=== PATIENT | male | born 1950 | race Caucasian/White ===

== ENCOUNTER 2021-01-01 07:51 | Emergency (ER) | payer OTHER ==
[~2021-01-01] VITALS: Ht 170.2 cm; Wt 86.4 kg
[2021-01-01 08:37] VITALS: TEMP 98.6
[2021-01-01] MEDS ORDERED: AMOXICILLIN 8751 TAB PO (09:27)
[2021-01-01] MEDS ORDERED: PERCOCET 325 MG1 TA2 PO (09:27)
[2021-01-01 11:23] VITALS: BP 207/88; PULSE 55
== END 2021-01-01 11:24 | disposition home or self-care (01) ==
LOC: COL.ER 07:51
DX: S02.5XXA Fracture of tooth (traumatic), initial encounter for closed fracture (principal); K04.7 Periapical abscess without sinus; K02.9 Dental caries, unspecified; I10 Essential (primary) hypertension; F17.200 Nicotine dependence, unspecified, uncomplicated; Z88.2 Allergy status to sulfonamides; X58.XXXA Exposure to other specified factors, initial encounter
CPT/HCPCS: J0696; J1885